=== PATIENT | female | born 1975 | race Hispanic/Latino ===

== ENCOUNTER 2024-02-25 20:34 | Emergency (ER) | payer BC ==
--- NOTE | 2024-02-25 21:51 | ER ---
Nurse's Notes [facility] Name: Skylar Horn Age: 48 yrs Sex: Female : 1975 Arrival Date: 02/25/2024 Time: 20:34 Bed 24 Private MD: Diagnosis: Dental caries, unspecified Presentation: 02/24 21:43 Chief complaint: Patient states: yesterday left side of mouth started to hurt, today tm6 got a lot worse. It is swollen and difficult to talk. Coronavirus screen: Client denies travel out of the [place] in the last 14 days. Ebola Screen: Patient negative for fever greater than or equal to 101.5 degrees Fahrenheit, and additional compatible Ebola Virus Disease symptoms Patient denies exposure to infectious person. Patient denies travel to an Ebola-affected area in the 21 days before illness onset. No symptoms or risks identified at this time. Initial Sepsis Screen: Does the patient meet any 2 criteria? No. Patient's initial sepsis screen is negative. Does the patient have a suspected source of infection? No. Patient's initial sepsis screen is negative. Risk Assessment: Do you want to hurt yourself or someone else? Patient reports no desire to harm self or others. Onset of symptoms was February 24, 2024. 21:43 Method Of Arrival: Ambulatory tm6 21:43 Acuity: DAVIS 4 tm6 Triage Assessment: 21:44 General: Appears in no apparent distress. Behavior is calm, cooperative. Pain: tm6 Complains of pain in mouth Pain currently is 10 out of 10 on a pain scale. Pain began 1 day ago. EENT: Reports pain in mouth Pain is 10 out of 10 on a pain scale. since yesterday. Neuro: Level of Consciousness is awake, alert, obeys commands, Oriented to person, place, time, situation. Cardiovascular: Patient's skin is warm and dry. Respiratory: Airway is patent Respiratory effort is even, unlabored, Respiratory pattern is regular, symmetrical. GI: No signs and/or symptoms were reported involving the gastrointestinal system. Abdomen is round non-distended. : Derm: No signs and/or symptoms reported regarding the dermatologic system. Derm: No signs and/or symptoms reported regarding the dermatologic system. Musculoskeletal: No signs and/or symptoms reported regarding the musculoskeletal system. 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 - Infectious Disease History:: Denies. - Social history:: Smoking status: Patient reports the use of cigarette tobacco products, denies chronic smoking, but will smoke occasionally, Patient uses alcohol, occasionally. Screenin:31 [facility] ED Fall Risk Assessment (Adult) History of falling in the last 3 months, lg3 including since admission No falls in past 3 months (0 pts) Confusion or Disorientation No (0 pts) Intoxicated or Sedated No (0 pts) Impaired Gait No (0 pts) Mobility Assist Device Used No (0 pt) Altered Elimination No (0 pt) Score/Fall Risk Level 0 - 2 = Low Risk Oriented to surroundings, Maintained a safe environment, Educated pt \T\ family on fall prevention, incl call for assistance when getting out of bed, Assessed \T\ reinforced patient's understanding of fall precautions. Abuse screen: Denies threats or abuse. Denies injuries from another. Nutritional screening: No deficits noted. Tuberculosis screening: No symptoms or risk factors identified. Assessment: 22:31 General: Appears in no apparent distress. uncomfortable, Behavior is calm, cooperative. lg3 Pain: Complains of pain in mouth. Neuro: No deficits noted. Stroud Agitation-Sedation Scale (RASS): 0 - Alert and Calm Level of Consciousness is awake, alert, obeys commands, Oriented to person, place, time, situation. Cardiovascular: No deficits noted. Denies chest pain, shortness of breath, Capillary refill < 3 seconds Clubbing of nail beds is absent JVD is absent Patient's skin is warm and dry. Respiratory: No deficits noted. Airway is patent Respiratory effort is even, unlabored, Respiratory pattern is regular, symmetrical. GI: No deficits noted. No signs and/or symptoms were reported involving the gastrointestinal system. : No deficits noted. No signs and/or symptoms were reported regarding the genitourinary system. EENT: Reports pain in mouth. Derm: Skin is intact, is healthy with good turgor, Skin is dry, Skin is normal, Skin temperature is warm left sided facial swelling. Musculoskeletal: No deficits noted. No signs and/or symptoms reported regarding the musculoskeletal system. Circulation, motion, and sensation intact. Range of motion: intact in all extremities. Vital Signs: 21:41 BP 137 / 87; Pulse 78; Resp 17; Temp 98.7(O); Pulse Ox 100% on R/A; MAP 102 mmHg; tm6 Weight 72.57 kg; Height 4 ft. 11 in. ; Pain 10/10; 22:31 BP 131 / 84; Pulse 75; Resp 16 S; Temp 98.3(O); Pulse Ox 100% on R/A; lg3 21:41 Body Mass Index 32.32 (72.57 kg, 149.86 cm) tm6 21:41 Pain Scale: Adult tm6 ED Course: 20:36 Patient arrived in ED. mr 20:52 Kristine Cordova PA-C is PHCP. sb4 20:52 Benoit Kay MD is Attending Physician. sb4 21:44 Triage completed. tm6 21:44 Arm band placed on right wrist. tm6 22:08 Dana Weiner RN is Primary Nurse. lg3 22:31 Patient has correct armband on for positive identification. Bed in low position. Call lg3 light in reach. Side rails up X 1. Client placed on continuous cardiac and pulse oximetry monitoring. NIBP monitoring applied. Door closed. Noise minimized. Warm blanket given. Pillow given. 22:31 No provider procedures requiring assistance completed. Patient did not have IV access lg3 during this emergency room visit. Administered Medications: 22:08 Drug: Viscous Lidocaine Mucous Membrane Liquid (4 %) 5 ml Mucous Membrane once Route: lg3 Mucous Membrane; 22:09 Follow up: Response: No adverse reaction; Medication administered at discharge. lg3 22:08 Drug: Clindamycin PO 300 mg PO once Route: PO; lg3 22:08 Follow up: Response: No adverse reaction; Medication administered at discharge. lg3 22:08 Drug: Hydrocodone-Acetaminophen PO (7.5 mg-325 mg) 1 tabs PO once Route: PO; lg3 22:08 Follow up: Response: No adverse reaction; Medication administered at discharge. lg3 Medication: 22:31 VIS not applicable for this client. lg3 Outcome: 21:50 Discharge ordered by . sb4 22:31 Discharged to home ambulatory, lg3 22:31 Condition: stable 22:31 Discharge instructions given to patient, Instructed on discharge instructions, follow up and referral plans. medication usage, Demonstrated understanding of instructions, follow-up care, medications, Prescriptions given X 3, 22:37 Patient left the ED. lg3 Signatures: Skylar Perdue, Reg Reg mr Husam, Dana, RN RN lg3 Kristine Cordova, PAIrisC PA-C sb4 Quan Ko RN RN tm6
--- NOTE | 2024-02-25 21:51 | EDPHYS ---
Physician Documentation [facility] Name: Skylar Horn Age: 48 yrs Sex: Female : 1975 Arrival Date: 02/25/2024 Time: 20:34 Bed 24 Private MD: ED Physician Benoit Kay HPI: 02/24 22:47 This 48 yrs old Female presents to ER via Ambulatory with complaints of Mouth sb4 Swelling, Toothache. 22:47 The patient presents with pain, swelling. The problem is located in the lower left sb4 first bicuspid and lower left cuspid. Onset: The symptoms/episode began/occurred 2 day(s) ago. Modifying factors: The symptoms are alleviated by nothing, the symptoms are aggravated by chewing, cold fluids, food, hot fluids. Associated signs and symptoms: Pertinent positives: pain, redness in area, swelling, Pertinent negatives: anorexia, chills, dysphagia, fever, inability to eat, nausea, vomiting. The patient has not experienced similar symptoms in the past. 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 - Infectious Disease History:: Denies. - Social history:: Smoking status: Patient reports the use of cigarette tobacco products, denies chronic smoking, but will smoke occasionally, Patient uses alcohol, occasionally. ROS: 22:54 Constitutional: Negative for fever, chills, and weight loss, sb4 22:54 ENT: Positive for dental pain, 22:54 All other systems are negative, Exam: 22:54 Constitutional: This is a well developed, well nourished patient who is awake, alert, sb4 and in no acute distress. Eyes: Extra-ocular motions intact. Periorbital areas with no swelling, redness, or edema. Skin: Warm, dry with normal turgor. Normal color with no rashes, no lesions, and no evidence of cellulitis. 22:54 Head/face: Noted is swelling, that is mild, of the left jaw, 22:54 ENT: Dental exam: dental caries, that is mild, specifically in the lower left cuspid and lower left first bicuspid, gum swelling, that is mild, specifically in the lower left cuspid and lower left first bicuspid, Vital Signs: 21:41 BP 137 / 87; Pulse 78; Resp 17; Temp 98.7(O); Pulse Ox 100% on R/A; MAP 102 mmHg; tm6 Weight 72.57 kg; Height 4 ft. 11 in. ; Pain 10/10; 22:31 BP 131 / 84; Pulse 75; Resp 16 S; Temp 98.3(O); Pulse Ox 100% on R/A; lg3 21:41 Body Mass Index 32.32 (72.57 kg, 149.86 cm) tm6 21:41 Pain Scale: Adult tm6 MDM: 21:11 Patient medically screened. sb4 22:54 Data reviewed: vital signs, nurses notes, and as a result, I will discharge patient. sb4 Counseling: I had a detailed discussion with the patient and/or guardian regarding the historical points, exam findings, and any diagnostic results supporting the discharge/admit diagnosis, the need for outpatient follow up, a dentist, to return to the emergency department if symptoms worsen or persist or if there are any questions or concerns that arise at home. Administered Medications: 22:08 Drug: Viscous Lidocaine Mucous Membrane Liquid (4 %) 5 ml Mucous Membrane once Route: lg3 Mucous Membrane; 22:09 Follow up: Response: No adverse reaction; Medication administered at discharge. lg3 22:08 Drug: Clindamycin PO 300 mg PO once Route: PO; lg3 22:08 Follow up: Response: No adverse reaction; Medication administered at discharge. lg3 22:08 Drug: Hydrocodone-Acetaminophen PO (7.5 mg-325 mg) 1 tabs PO once Route: PO; lg3 22:08 Follow up: Response: No adverse reaction; Medication administered at discharge. lg3 Disposition Summary: 02/25/24 21:50 Discharge Ordered Notes: Location: Home sb4 Problem: new sb4 Symptoms: have improved sb4 Condition: Stable sb4 Diagnosis - Dental caries, unspecified sb4 Followup: sb4 - With: Private Physician - When: 2 - 3 days - Reason: Recheck today's complaints, Re-evaluation by your physician Discharge Instructions: - Discharge Summary Sheet sb4 - Dental Caries, Adult sb4 - Dental Pain, [id number] sb4 Forms: - Work release form lg3 - Medication Reconciliation Form sb4 - Antibiotic Education sb4 - Patient Portal Instructions sb4 - Leadership Thank You Letter sb4 Prescriptions: - chlorhexidine gluconate 0.12 % subgingival-local Mouthwash - swish 15 milliliter MUCOUS MEMBRANE route 2 times per day; 120 milliliter; sb4 Refills: 0, Product Selection Permitted - Clindamycin HCl 300 mg Oral Capsule - take 1 capsule ORAL route every 6 hours for 10 days; 40 capsule; Refills: 0, sb4 Product Selection Permitted - Ibuprofen 800 mg Oral Tablet - take 1 tablet ORAL route every 8 hours As needed take with food; 30 tablet; sb4 Refills: 0, Product Selection Permitted Signatures: Dana Weiner RN RN lg3 Kristine Cordova PA-C PA-C sb4 Quan Ko RN RN tm6
[2024-02-25] MEDS ORDERED: LIDOCAINE VISCOUS 2% 10ML ORAL SOLN ONE (22:04)
[2024-02-25] MEDS ORDERED: HYDROCODONE/APAP 7.5/325 MG TAB ONE (22:04)
[2024-02-26 15:15] VITALS: O2SAT 100
[2024-02-26 15:19] VITALS: BP 131/84; TEMP 98.3
== END 2024-02-25 22:37 | disposition home or self-care (01) ==
LOC: ER 20:34
DX: K02.9 Dental caries, unspecified (principal); F17.210 Nicotine dependence, cigarettes, uncomplicated; F10.90 Alcohol use, unspecified, uncomplicated
CPT/HCPCS: 99284